=== PATIENT | female | born 1960 | race African-American/Black ===

== ENCOUNTER 2020-03-07 08:03 | Day surgery (SDC) | payer BC ==
[2020-03-06 16:02] VITALS: BMI 26.5
== END 2020-03-07 08:35 | disposition home or self-care (01) ==
LOC: FASU 08:03
PROVIDERS: ATTEND Internal Medicine Gastroenterology
PROC: 0DJ08ZZ Inspection of Upper Intestinal Tract, Via Natural or Artificial Opening Endoscopic (ICD-10-PCS; principal; 2020-03-07)
DX: K21.9 Gastro-esophageal reflux disease without esophagitis (principal); Z53.09 Procedure and treatment not carried out because of other contraindication